=== PATIENT | male | born 1945 | race Caucasian/White ===

== ENCOUNTER 2020-11-20 10:54 | Emergency (ER) | payer MEDICARE ==
[~2020-11-20] VITALS: Ht 180.3 cm; Wt 147.4 kg
[~2020-11-20 10:54] MED LIST: ALBIPROI INH; ASPI81EC; CEPH500; CYCL10 PO; HYDACE5 PO; HYDCHL25; META800; NAPR500; RXCYCL10 PO; RXNEOPOLHC AU; VALS80; [UNRECOGNIZED DRUG - REMARK]
[2020-11-20 11:36] LABS: BASOPHILS ABSOLUTE AUTO 0.04 K/mm3 (0.00-0.23); BASOPHILS PERCENT AUTO 0 % (0-2); EOSINOPHILS ABSOLUTE AUTO 0.23 K/mm3 (0.00-0.68); EOSINOPHILS PERCENT AUTO 2 % (0-6); Hematocrit 36.7 % (37.0-53.0); Hemoglobin 11.8 g/dL (13.5-17.5); IMMATURE GRAN ABSOLUTE AUTO 0.03 K/mm3 (0.00-0.10); IMMATURE GRAN PERCENT AUTO 0 % (0-1); LYMPHOCYTES ABSOLUTE AUTO 2.27 K/mm3 (0.84-5.20); LYMPHOCYTES PERCENT AUTO 22 % (21-46); MONOCYTES ABSOLUTE AUTO 1.02 K/mm3 (0.16-1.47); MONOCYTES PERCENT AUTO 10 % (4-13); Mean Corpuscular HGB 28.9 pg (26.0-34.0); Mean Corpuscular HGB Conc 32.2 g/dL (31.5-36.5); Mean Corpuscular Volume 90 fL (80-100); Mean Platelet Volume 10.3 fL (9.1-12.4); NEUTROPHILS ABSOLUTE AUTO 6.79 K/mm3 (1.96-9.15); NEUTROPHILS PERCENT AUTO 65 % (41-73); Platelet Count 217 K/mm3 (150-400); RDW Coefficient Variation 13.1 % (11.7-14.2); RDW Standard Deviation 43.2 fL (35.1-46.3); Red Blood Cell Count 4.09 M/mm3 (4.30-5.90); White Blood Cell Count 10.38 K/mm3 (4.00-11.30)
[2020-11-20] MEDS ORDERED: GABA100 PO (11:39)
[2020-11-20] MEDS ORDERED: TAMS.4ER PO (11:39)
[2020-11-20] MEDS ORDERED: PRAV20 PO (11:40)
[2020-11-20] MEDS ORDERED: FURO20 PO (11:40)
[2020-11-20] MEDS ORDERED: POTA10T PO (11:40)
[2020-11-20] MEDS ORDERED: Amlodipine-Ben1 EACH PO (11:41)
[2020-11-20] MEDS ORDERED: FINA5 PO (11:42)
[2020-11-20] MEDS ORDERED: PIOG15 PO (11:42)
[2020-11-20] MEDS ORDERED: MSM500 MG PO (11:42)
[2020-11-20 11:59] LABS: Alanine Aminotransfer (ALT/SGP 43 U/L (12-78); Albumin, Blood 2.8 g/dL (3.4-5.0); Albumin/Globulin Ratio 0.6 (0.8-1.8); Alk Phos 78 U/L (50-136); Anion Gap 7 mmol/L (6-16); Aspartate Aminotrans (AST/SGOT 63 U/L (12-37); Bilirubin, Total 0.6 mg/dL (0.1-1.0); Blood Urea Nitrogen 21 mg/dL (8-24); Bun/Creatinine Ratio 13.4 (12.0-20.0); CO2, Blood 25 mmol/L (21-32); Calcium, Blood 8.7 mg/dL (8.5-10.1); Chloride, Blood 103 mmol/L (98-108); Creatinine, Blood 1.57 mg/dL (0.60-1.20); Globulin, Blood 4.8 g/dL (2.2-4.0); Glomerular Filtration Rate 43 (60-); Glucose, Blood 131 mg/dL (70-99); Potassium, Blood 4.1 mmol/L (3.5-5.5); Sodium, Blood 135 mmol/L (136-145); Total Protein, Blood 7.6 g/dL (6.4-8.2); Troponin I <0.015 ng/mL (0.000-0.040)
[2020-11-20] MEDS ORDERED: Norco 5-325 Ta1 EACH PO (13:22)
[2020-11-20] MEDS ORDERED: IBUP800 PO (13:22)
== END 2020-11-20 13:15 | disposition home or self-care (01) ==
LOC: ER 10:54
PROVIDERS: Physician Assistant
DX: S16.1XXA Strain of muscle, fascia and tendon at neck level, initial encounter (principal); S39.012A Strain of muscle, fascia and tendon of lower back, initial encounter; S09.90XA Unspecified injury of head, initial encounter; S40.021A Contusion of right upper arm, initial encounter; S70.01XA Contusion of right hip, initial encounter; Z79.82 Long term (current) use of aspirin; Z79.899 Other long term (current) drug therapy; W18.30XA Fall on same level, unspecified, initial encounter; Y92.002 Bathroom of unspecified non-institutional (private) residence as the place of occurrence of the external cause
CPT/HCPCS: 36415; 70450; 72070; 72100; 72125; 80053; 83690; 84484; 85025; 93005; 93010; 99284-25

== ENCOUNTER 2022-10-02 14:58 | Inpatient (IN) | payer MEDICARE ==
[~2022-10-02] VITALS: Ht 188 cm; Wt 159.3 kg
[~2022-10-02 14:58] MED LIST changes: +Amlodipine-Ben1 EACH PO; +FINA5 PO; +FURO20 PO; +GABA100 PO; +IBUP800 PO; +MSM500 MG PO; +Norco 5-325 Ta1 EACH PO; +PIOG15 PO; +POTA10T PO; +PRAV20 PO; +TAMS.4ER PO
[2022-10-02 15:32] LABS: BASOPHILS ABSOLUTE AUTO 0.03 K/mm3 (0.00-0.23); BASOPHILS PERCENT AUTO 0 % (0-2); EOSINOPHILS ABSOLUTE AUTO 0.12 K/mm3 (0.00-0.68); EOSINOPHILS PERCENT AUTO 1 % (0-6); Hematocrit 32.2 % (37.0-53.0); Hemoglobin 10.2 g/dL (13.5-17.5); IMMATURE GRAN ABSOLUTE AUTO 0.05 K/mm3 (0.00-0.10); IMMATURE GRAN PERCENT AUTO 0 % (0-1); LYMPHOCYTES ABSOLUTE AUTO 2.93 K/mm3 (0.84-5.20); LYMPHOCYTES PERCENT AUTO 20 % (21-46); MONOCYTES ABSOLUTE AUTO 1.14 K/mm3 (0.16-1.47); MONOCYTES PERCENT AUTO 8 % (4-13); Mean Corpuscular HGB Conc 31.7 g/dL (31.5-36.5); Mean Corpuscular Volume 95 fL (80-100); Mean Platelet Volume 10.2 fL (9.1-12.4); NEUTROPHILS ABSOLUTE AUTO 10.17 K/mm3 (1.96-9.15); NEUTROPHILS PERCENT AUTO 71 % (41-73); Platelet Count 166 K/mm3 (150-400); RDW Coefficient Variation 14.5 % (11.7-14.2); RDW Standard Deviation 50.5 fL (35.1-46.3); White Blood Cell Count 14.44 K/mm3 (4.00-11.30)
[2022-10-02] MEDS ORDERED: PRAV20 PO (15:38)
[2022-10-02] MEDS ORDERED: TAMSULOSIN HCL0.4 M1 PO (15:38)
[2022-10-02] MEDS ORDERED: FURO80 PO (15:38)
[2022-10-02] MEDS ORDERED: NEURONTIN300 MG PO (15:38)
[2022-10-02] MEDS ORDERED: AMLODIPINE-BEN1 EAC2 PO (15:38)
[2022-10-02] MEDS ORDERED: Potassium Chlo20 ME1 PO (15:38)
[2022-10-02] MEDS ORDERED: DEXA2 PO (15:39)
[2022-10-02] MEDS ORDERED: PIOGLITAZONE HC15 MG PO (15:40)
[2022-10-02 15:49] LABS: Magnesium, Blood 2.3 mg/dL (1.6-2.4)
[2022-10-02 15:50] LABS: Albumin/Globulin Ratio 0.8 (0.8-1.8); Bilirubin, Total 0.5 mg/dL (0.1-1.0); Bun/Creatinine Ratio 16.2 (12.0-20.0); Calcium, Blood 9.4 mg/dL (8.5-10.1); Creatinine, Blood 1.36 mg/dL (0.60-1.20); Globulin, Blood 3.9 g/dL (2.2-4.0); Potassium, Blood 4.4 mmol/L (3.5-5.5); Total Protein, Blood 6.9 g/dL (6.4-8.2)
[2022-10-02 16:12] LABS: International Normalized Ratio 1.02; Prothrombin Time Results 10.7 Sec (9.7-11.5)
[2022-10-02 16:52] LABS: Source, Urine Clean Catch
[2022-10-02 17:04] LABS: Appearance, Urine Hazy (Clear); Bilirubin, Urine Neg (Neg); Blood, Urine 2+ (Neg); Color, Urine Yellow (P-Yellow); Glucose Qualitative, Urine Neg (Neg); Ketones, Urine Neg (Neg); Leukocyte Esterase, Urine 3+ (Neg); Nitrite, Urine Pos (Neg); Protein, Urine 2+ (Neg); Urobilinogen, Urine NORM (Normal)
[2022-10-02 17:29] LABS: Bacteria Many /hpf; Squamous Epithelial Cells Rare /hpf (Few); White Blood Cells, Urine 50-100 /hpf (0-5)
[2022-10-02 19:32] VITALS: BP 152/108
[2022-10-02 20:32] LABS: Influenza A, PCR NEGATIVE (NEGATIVE); Influenza B, PCR NEGATIVE (NEGATIVE); Resp Syncytial Virus, PCR NEGATIVE (NEGATIVE); SARS-Cov-2 (COVID-19) PCR, MMC NEGATIVE (NEGATIVE)
[2022-10-02 23:25] VITALS: BP 157/67
--- NOTE | 2022-10-03 02:00 | NUR ---
UPDATE AFTER CONDOM CATH PLACED AND FAILED FOR FREQUENCY, BLADDER SCAN PERFORMED. 841 MLs IN BLADDER. STRAIGHT CATH PERFORMED WITH COUDE PER PROTOCOL DUE TO HISTORY OF PROSTATE CANCER, BPH AND PATIENT'S ANATOMY, INSERTION TRAUMATIC TO PATIENT. PATIENT BEING HEAVILY DIURESED AND HAS ALMOST FALLEN MULTIPLE TIMES DUE TO NEEDING TO GET UP TO VOID. CALL PLACED TO HOSPITALIST, ORDER FOR MENDEZ INSERTION RECEIVED. UA SENT TO LAB.
[2022-10-03 03:09] LABS: Source, Urine Foley catheter
[2022-10-03 03:12] LABS: Bilirubin, Urine Neg (Neg); Blood, Urine 5+ (Neg); Glucose Qualitative, Urine Neg (Neg); Ketones, Urine Neg (Neg); Leukocyte Esterase, Urine 2+ (Neg); Nitrite, Urine Neg (Neg); Protein, Urine 2+ (Neg); Urobilinogen, Urine NORM (Normal); pH, Urine 6.5 (5.0-8.0)
[2022-10-03 03:15] LABS: Appearance, Urine Hazy (Clear); Color, Urine Yellow (P-Yellow)
[2022-10-03 03:20] LABS: Bacteria Few /hpf; Mucus Light (0-Heavy); Red Blood Cells, Urine 25-50 /hpf (0-2); Squamous Epithelial Cells Not Seen /hpf (Few); White Blood Cells, Urine TNTC /hpf (0-5)
[2022-10-03 03:48] VITALS: BP 118/64
[2022-10-03 03:56] LABS: BASOPHILS ABSOLUTE AUTO 0.03 K/mm3 (0.00-0.23); BASOPHILS PERCENT AUTO 0 % (0-2); EOSINOPHILS ABSOLUTE AUTO 0.06 K/mm3 (0.00-0.68); EOSINOPHILS PERCENT AUTO 1 % (0-6); Hematocrit 29.7 % (37.0-53.0); Hemoglobin 9.6 g/dL (13.5-17.5); IMMATURE GRAN ABSOLUTE AUTO 0.03 K/mm3 (0.00-0.10); IMMATURE GRAN PERCENT AUTO 0 % (0-1); LYMPHOCYTES ABSOLUTE AUTO 1.78 K/mm3 (0.84-5.20); LYMPHOCYTES PERCENT AUTO 16 % (21-46); MONOCYTES ABSOLUTE AUTO 0.98 K/mm3 (0.16-1.47); MONOCYTES PERCENT AUTO 9 % (4-13); Mean Corpuscular HGB Conc 32.3 g/dL (31.5-36.5); Mean Corpuscular Volume 93 fL (80-100); Mean Platelet Volume 10.1 fL (9.1-12.4); NEUTROPHILS ABSOLUTE AUTO 7.97 K/mm3 (1.96-9.15); NEUTROPHILS PERCENT AUTO 73 % (41-73); Platelet Count 147 K/mm3 (150-400); RDW Coefficient Variation 14.3 % (11.7-14.2); RDW Standard Deviation 48.5 fL (35.1-46.3); White Blood Cell Count 10.85 K/mm3 (4.00-11.30)
[2022-10-03 04:25] LABS: Magnesium, Blood 1.8 mg/dL (1.6-2.4)
[2022-10-03 04:26] LABS: Albumin, Blood 2.7 g/dL (3.4-5.0); Albumin/Globulin Ratio 0.7 (0.8-1.8); Bilirubin, Total 0.5 mg/dL (0.1-1.0); Bun/Creatinine Ratio 14.2 (12.0-20.0); Calcium, Blood 8.9 mg/dL (8.5-10.1); Creatinine, Blood 1.34 mg/dL (0.60-1.20); Globulin, Blood 3.7 g/dL (2.2-4.0); Potassium, Blood 3.7 mmol/L (3.5-5.5); Total Protein, Blood 6.4 g/dL (6.4-8.2)
--- NOTE | 2022-10-03 06:19 | NUR ---
SHIFT SUMMARY PATIENT ALERT, ORIENTED x3-4. BP STABLE, TELE READING SINUS TACH 100-110s, PATIENT ON RA WITH O2 SAT >90%. PATIENT UNCOMFORTABLE IN HOSPITAL BED DURING THE NIGHT, PATIENT PROVIDED WITH RECLINER AND PATIENT WAS ABLE TO REST EASIER. MENDEZ IN PLACE DRAINING CLEAR/YELLOW URINE TO GRAVITY, SEE PREVIOUS NOTE. STANDBY ASSIST TO BATHROOM FOR BOWEL MOVEMENTS. NO OTHER SIGNIFICANT CHANGES DURING THE NIGHT, WILL REPORT TO DAY SHIFT RN. PATIENT AND FAMILY EDUCATED ON IGNITION RISK IF OXYGEN IS IN USE. PATIENT AND FAMILY VERBALIZED UNDERSTANDING AND PATIENT'S STATED THAT THE PATIENT QUIT SMOKING "YEARS AGO". WILL CONTINUE TO MONITOR IGNITION RISK.
[2022-10-03 07:31] VITALS: BP 121/72
[2022-10-03 15:11] VITALS: BP 141/71
--- NOTE | 2022-10-03 16:24 | NUR ---
TRANSFER: PT TRANSFERRED TO ROOM 302 VIA BED. REPORT GIVEN TO ELICIA ADAM. ALL BELONGINGS WITH PATIENT.
--- NOTE | 2022-10-03 16:29 | NUR ---
TRANSFER TO MEDICAL UNIT MR GOLDSTEIN ARRIVAL ON THE MEDICAL UNIT AT [id number]. PRESENT ON TRANSFER. CLINT WAS GIVEN WRITTEN AND VERBAL EDUCATION ON IGNITION SOURSES WHEN OXYGEN IN USE AND PT VISITOR SAFETY, ALSO REQUESTED THAT ALL VISITORS LEAVE IGNITION SOURCES IN THEIR VEHICLE. TRANSFERED ON HIS BED. PT AWAKE, CAN TALL ME HIS NAME, THAT HE IS IN HOSPITAL IN [place] FOR PNEUMONIA. HE DENIES ANY PAIN AND SAID HE HAS NO BREATHING DIFFICULTIES. MOIST NON PRODUCTIVE COUGH NOTED. CONTAINER AT BEDSIDE FOR SPUTUM CULTURE. BED LOW, CALL LIGHT IN REACH, BED ALARM ON.
[2022-10-03 19:49] VITALS: BP 134/60
[2022-10-04 04:18] LABS: Bun/Creatinine Ratio 13.7 (12.0-20.0); Calcium, Blood 9.3 mg/dL (8.5-10.1); Creatinine, Blood 1.53 mg/dL (0.60-1.20); Potassium, Blood 3.7 mmol/L (3.5-5.5)
[2022-10-04 05:18] VITALS: BP 120/58
--- NOTE | 2022-10-04 05:42 | NUR ---
AMBULATIN UP WITH MINIMAL ASSIST THIS MORNING USED WALKER TO WALK IN THE [place]. STEADY ON FEET HAD NO TROUBLE AND NO SOB. PT PUT VIA MENDEZ WAS 2400 THIS EVENING.
[2022-10-04 07:28] VITALS: BP 131/75
--- NOTE | 2022-10-04 10:45 | NUR ---
RN NOTE PT WAS EDUCATED ON IGNITION SOURCES AND RISK OF INJURY WHILE OXYGEN IN USE. HE SAID HE DOES NOT SMOKE AND THAT HE UNDERSTANDS THE EDUCATION. HOURLY ROUNDS INCLUDE OBSERVING FOR CHANGES IN RISK FOR IGNITION. MR GOLDSTEIN HAS WALKED IN HIS ROOM, STEADY GAIT. REMINDED NOT TO GET UP WITHOUT CALLING FOR ASSISTANCE. CHAIR ALARM USED HE HAS FORGOTTEN TO CALL FOR ASSISTANCE. CALL LIGHT IN REACH.
--- NOTE | 2022-10-04 12:00 | NUR ---
RN NOTE CALLED DR RESENDIZ TO DISCUSS NEED FOR CONTINUED MENDEZ CATHETER PLACEMENT AFTER REPORT OF DIFFICULT INSERTION. DR RESENDIZ DOES NOT WANT THE MENDEZ CATHETER REMOVED TODAY FLOMAX WAS STARTED THIS MORNING. REEVALUATE TOMORROW MORNING.
[2022-10-04 16:09] VITALS: BP 135/50
--- NOTE | 2022-10-04 18:33 | NUR ---
SHIFT SUMMARY MR GOLDSTEIN HAS NOT HAD ANY C/O PAIN TODAY. INDWELLING MENDEZ STILL IN PLACE (SEE PRIOR NOTE). PT INTERACTING WITH AND VISITORS THIS AFTERNOON, TIRED AFTER THEIR VISIT. OCCASIONAL NON PRODUCTIVE COUGH. DENIES SOB. BLOOD SUGARS PRE MEALS ALL STABLE. BED LOW, CALL LIGHT IN REACH, BED AND CHAIR ALARMS USED.
[2022-10-04 19:50] VITALS: BP 112/72
--- NOTE | 2022-10-05 04:43 | NUR ---
SHIFT ASSESSMENT PT MUCH BETTER UP AT SIDE OF BED HAS BEEN CALLING APPROPRIATLY NO C/O PAIN NO DISTRESS STATES HE FEELS GOOD ENOUGH TO GO HOME. EVENING HAS BEEN UNEVENTFUL, CONT TO MONITOR AND ASSIST WERE NEEDED
[2022-10-05 05:22] LABS: Bun/Creatinine Ratio 19.4 (12.0-20.0); Calcium, Blood 9.4 mg/dL (8.5-10.1); Creatinine, Blood 1.29 mg/dL (0.60-1.20); Potassium, Blood 3.7 mmol/L (3.5-5.5)
[2022-10-05 07:14] VITALS: BP 128/59
--- NOTE | 2022-10-05 08:00 | NUR ---
PT DENIES SMOKING. EDUCATED ON FIRE SAFETY. STATES HAS NO INFLAMABLE ITEMS.
[2022-10-05] MEDS ORDERED: JARDIANCE25 MG PO (13:18)
[2022-10-05] MEDS ORDERED: FURO40 PO (13:18)
[2022-10-05] MEDS ORDERED: DOXY100 PO (13:18)
[2022-10-05] MEDS ORDERED: LISI5 PO (13:18)
[2022-10-05] MEDS ORDERED: POTA10T PO (13:18)
[2022-10-05] MEDS ORDERED: VISBIOME 112.51 EACH PO (13:18)
--- NOTE | 2022-10-05 14:31 | NUR ---
IV PULLED BY AIDE. NO TELE. REVIEWED DISCHARGE WITH PT AND SPOUSE. THEY VERBALIZED UNDERSTANDING MEDS AND INST. PT WHEELED TO DOOR AT 1430
== END 2022-10-05 14:55 | disposition home or self-care (01) | DRG 871 ==
LOC: ER 14:58 → PCU 18:31 → MEDS 18:31 → PCU 18:35 → MEDS 10-03 16:14
PROVIDERS: Internal Medicine; Student in an Organized Health Care Education/Training Program; ADMIT Student in an Organized Health Care Education/Training Program
PROC: 3E03329 Introduction of Other Anti-infective into Peripheral Vein, Percutaneous Approach (ICD-10-PCS; principal; 2022-10-02)
PROC: 0T9B70Z Drainage of Bladder with Drainage Device, Via Natural or Artificial Opening (ICD-10-PCS; 2022-10-02)
DX: A41.9 Sepsis, unspecified organism (principal); G93.41 Metabolic encephalopathy; I50.33 Acute on chronic diastolic (congestive) heart failure; J18.9 Pneumonia, unspecified organism; Z68.42 Body mass index [BMI] 45.0-49.9, adult; N39.0 Urinary tract infection, site not specified; R65.20 Severe sepsis without septic shock; Z20.822 Contact with and (suspected) exposure to COVID-19; I95.9 Hypotension, unspecified; I11.0 Hypertensive heart disease with heart failure; I35.0 Nonrheumatic aortic (valve) stenosis; R79.0 Abnormal level of blood mineral; B96.20 Unspecified Escherichia coli [E. coli] as the cause of diseases classified elsewhere; R33.9 Retention of urine, unspecified; Z87.891 Personal history of nicotine dependence; Z79.891 Long term (current) use of opiate analgesic; Z79.1 Long term (current) use of non-steroidal anti-inflammatories (NSAID); Z85.51 Personal history of malignant neoplasm of bladder; Z79.82 Long term (current) use of aspirin; Z79.899 Other long term (current) drug therapy
CPT/HCPCS: 0241U; 36415; 51703; 71045; 80048; 80053; 81001; 82947; 83605; 83735; 83880; 84145; 85025; 85610; 87040; 87070; 87077; 87086; 87186; 87205; 87449; 92526; 92610; 93005; 93010; 94760; 96365; 97110; 97162; 97530; 99285-25; A9270; J0456; J0696; J1650; J1940; J7030; J7050

== ENCOUNTER 2023-04-20 08:50 | Emergency (ER) | payer OTHER ==
[~2023-04-20] VITALS: Ht 180.3 cm; Wt 158.8 kg
[~2023-04-20 08:50] MED LIST changes: +AMLODIPINE-BEN1 EAC2 PO; +DEXA2 PO; +DOXY100 PO; +FURO40 PO; +FURO80 PO; +JARDIANCE25 MG PO; +LISI5 PO; +NEURONTIN300 MG PO; +PIOGLITAZONE HC15 MG PO; +Potassium Chlo20 ME1 PO; +TAMSULOSIN HCL0.4 M1 PO; +VISBIOME 112.51 EACH PO
[2023-04-20 09:23] LABS: Source, Urine Clean Catch
[2023-04-20 09:28] LABS: Appearance, Urine Clear (Clear); Bilirubin, Urine Neg (Neg); Blood, Urine 3+ (Neg); Color, Urine Yellow (P-Yellow); Glucose Qualitative, Urine 4+ (Neg); Ketones, Urine 1+ (Neg); Leukocyte Esterase, Urine Neg (Neg); Nitrite, Urine Neg (Neg); Protein, Urine 2+ (Neg); Specific Gravity, Urine 1.015 (1.003-1.022); Urobilinogen, Urine NORM (Normal); pH, Urine 6.5 (5.0-8.0)
[2023-04-20] MEDS ORDERED: FARXIGA10 MG PO (09:34)
[2023-04-20] MEDS ORDERED: ACET250 PO (09:35)
[2023-04-20] MEDS ORDERED: PRED5 PO (09:36)
[2023-04-20] MEDS ORDERED: ABIRATERONE AC250 MG PO (09:40)
[2023-04-20] MEDS ORDERED: ASPI81CH PO (09:41)
[2023-04-20] MEDS ORDERED: VITAMIN D350 MC3 PO (09:42)
[2023-04-20 09:54] LABS: Granular Casts 0-2 /lpf (0); Hyaline Casts 0-2 /lpf (0-2)
[2023-04-20 09:55] LABS: Amorphous Light (0-Heavy); Bacteria Few /hpf; Red Blood Cells, Urine 0-2 /hpf (0-2); Squamous Epithelial Cells Few /hpf (Few); White Blood Cells, Urine 0-2 /hpf (0-5)
[2023-04-20 09:56] LABS: Renal Epithelial Rare /hpf (0-Rare)
[2023-04-20 10:33] LABS: BASOPHILS ABSOLUTE AUTO 0.03 K/mm3 (0.00-0.23); BASOPHILS PERCENT AUTO 1 % (0-2); EOSINOPHILS ABSOLUTE AUTO 0.15 K/mm3 (0.00-0.68); EOSINOPHILS PERCENT AUTO 2 % (0-6); Hemoglobin 11.7 g/dL (13.5-17.5); IMMATURE GRAN ABSOLUTE AUTO 0.03 K/mm3 (0.00-0.10); IMMATURE GRAN PERCENT AUTO 1 % (0-1); LYMPHOCYTES ABSOLUTE AUTO 1.73 K/mm3 (0.84-5.20); LYMPHOCYTES PERCENT AUTO 27 % (21-46); MONOCYTES ABSOLUTE AUTO 0.69 K/mm3 (0.16-1.47); MONOCYTES PERCENT AUTO 11 % (4-13); Mean Corpuscular HGB 29.9 pg (26.0-34.0); Mean Corpuscular HGB Conc 30.8 g/dL (31.5-36.5); Mean Corpuscular Volume 97 fL (80-100); Mean Platelet Volume 10.6 fL (9.1-12.4); NEUTROPHILS ABSOLUTE AUTO 3.78 K/mm3 (1.96-9.15); NEUTROPHILS PERCENT AUTO 59 % (41-73); Platelet Count 169 K/mm3 (150-400); RDW Coefficient Variation 14.5 % (11.7-14.2); RDW Standard Deviation 51.9 fL (35.1-46.3); Red Blood Cell Count 3.91 M/mm3 (4.30-5.90); White Blood Cell Count 6.41 K/mm3 (4.00-11.30)
[2023-04-20 10:50] LABS: Influenza A, PCR NEGATIVE (NEGATIVE); Influenza B, PCR NEGATIVE (NEGATIVE); Resp Syncytial Virus, PCR NEGATIVE (NEGATIVE)
[2023-04-20 10:52] LABS: Albumin/Globulin Ratio 0.7 (0.8-1.8); Bilirubin, Total 0.4 mg/dL (0.1-1.0); Bun/Creatinine Ratio 14.5 (12.0-20.0); Calcium, Blood 9.2 mg/dL (8.5-10.1); Creatinine, Blood 1.93 mg/dL (0.60-1.20); Globulin, Blood 4.3 g/dL (2.2-4.0); Potassium, Blood 4.1 mmol/L (3.5-5.5); Total Protein, Blood 7.3 g/dL (6.4-8.2)
[2023-04-20 10:52] LABS: SARS-Cov-2 (COVID-19) PCR, MMC POSITIVE (NEGATIVE)
[2023-04-20 11:58] VITALS: BP 117/99
== END 2023-04-20 13:48 | disposition home or self-care (01) ==
LOC: ER 08:50
PROVIDERS: Emergency Medicine
DX: U07.1 COVID-19 (principal); R29.6 Repeated falls; R35.0 Frequency of micturition; Z88.5 Allergy status to narcotic agent; Z79.899 Other long term (current) drug therapy; Z79.84 Long term (current) use of oral hypoglycemic drugs; Z79.52 Long term (current) use of systemic steroids; Z79.82 Long term (current) use of aspirin; Z87.891 Personal history of nicotine dependence
CPT/HCPCS: 0241U; 71046; 80053; 81001; 83880; 85025; 93005; 93010; 99285-25

== ENCOUNTER → 2023-05-12 | Outpatient (CLI) | payer OTHER ==
[~2023-05-12] MED LIST changes: +ABIRATERONE AC250 MG PO; +ACET250 PO; +ASPI81CH PO; +FARXIGA10 MG PO; +PRED5 PO; +VITAMIN D350 MC3 PO
[2023-05-12 10:56] LABS: Source, Urine Clean Catch
[2023-05-12 13:38] LABS: Appearance, Urine Clear (Clear); Bilirubin, Urine Neg (Neg); Blood, Urine Neg (Neg); Color, Urine Yellow (P-Yellow); Glucose Qualitative, Urine 4+ (Neg); Ketones, Urine Neg (Neg); Leukocyte Esterase, Urine Neg (Neg); Nitrite, Urine Neg (Neg); Protein, Urine 2+ (Neg); Specific Gravity, Urine 1.015 (1.003-1.022); Urobilinogen, Urine NORM (Normal)
[2023-05-12 14:10] LABS: Creatinine, Urine Random 93.4 mg/dL (27.00-270.00); Protein, Urine Random 45.3 mg/dL (0.0-11.9); Protein/Creat Ratio, Ur Random 0.5
[2023-05-12 15:07] LABS: Red Blood Cells, Urine 0-2 /hpf (0-2); White Blood Cells, Urine 0-2 /hpf (0-5)
[2023-05-12 15:08] LABS: Bacteria Mod /hpf; Squamous Epithelial Cells Rare /hpf (Few)
== END | disposition home or self-care (01) ==
LOC: LAB 08:00 → LAB SHORT 08:00
PROVIDERS: Hospitalist
DX: N18.32 Chronic kidney disease, stage 3b (principal)
CPT/HCPCS: 81001; 82570; 84156; 87086

== ENCOUNTER 2023-07-27 12:35 | Emergency (ER) | payer OTHER ==
[~2023-07-27] VITALS: Ht 180.3 cm; Wt 148.8 kg
[2023-07-27] MEDS ORDERED: NS 1,000 ML IV SCH (12:45)
[2023-07-27 13:02] LABS: BASOPHILS ABSOLUTE AUTO 0.04 K/mm3 (0.00-0.23); BASOPHILS PERCENT AUTO 0 % (0-2); EOSINOPHILS ABSOLUTE AUTO 0.42 K/mm3 (0.00-0.68); EOSINOPHILS PERCENT AUTO 4 % (0-6); Hematocrit 36.3 % (37.0-53.0); Hemoglobin 11.5 g/dL (13.5-17.5); IMMATURE GRAN ABSOLUTE AUTO 0.03 K/mm3 (0.00-0.10); IMMATURE GRAN PERCENT AUTO 0 % (0-1); LYMPHOCYTES ABSOLUTE AUTO 4.27 K/mm3 (0.84-5.20); LYMPHOCYTES PERCENT AUTO 36 % (21-46); MONOCYTES ABSOLUTE AUTO 0.67 K/mm3 (0.16-1.47); MONOCYTES PERCENT AUTO 6 % (4-13); Mean Corpuscular HGB 30.6 pg (26.0-34.0); Mean Corpuscular HGB Conc 31.7 g/dL (31.5-36.5); Mean Corpuscular Volume 97 fL (80-100); NEUTROPHILS PERCENT AUTO 55 % (41-73); Platelet Count 217 K/mm3 (150-400); RDW Coefficient Variation 13.9 % (11.7-14.2); RDW Standard Deviation 49.2 fL (35.1-46.3); Red Blood Cell Count 3.76 M/mm3 (4.30-5.90); White Blood Cell Count 11.93 K/mm3 (4.00-11.30)
[2023-07-27 13:25] LABS: Albumin, Blood 2.9 g/dL (3.4-5.0); Albumin/Globulin Ratio 0.8 (0.8-1.8); Bilirubin, Total 0.4 mg/dL (0.1-1.0); Bun/Creatinine Ratio 15.9 (12.0-20.0); Calcium, Blood 9.9 mg/dL (8.5-10.1); Creatinine, Blood 2.71 mg/dL (0.60-1.20); Globulin, Blood 3.8 g/dL (2.2-4.0); Potassium, Blood 5.9 mmol/L (3.5-5.5); Total Protein, Blood 6.7 g/dL (6.4-8.2)
--- NOTE | 2023-07-27 16:23 | NUR ---
The patient, and 2 granddaughters are present for palliative conversation. They report the pt's health has been declining over the past few months, with it worsening daily over the past week. According to family, the patient is no longer able to perform ADL's. He is sleeping up to 20 hours a day, and no longer participating in any activities. He has a history of prostate cancer, and has been involved in treatment until approximately a month ago, according to family. He also has a history of kidney disease, and is currently not receiving treatment for this. Referral sent to [facility] for evaluate and treat if indicated.
[2023-07-27 18:30] VITALS: BP 109/70
== END 2023-07-27 18:30 | disposition home or self-care (01) ==
LOC: ER 12:35
PROVIDERS: Emergency Medicine
DX: R53.1 Weakness (principal); J96.10 Chronic respiratory failure, unspecified whether with hypoxia or hypercapnia; E66.2 Morbid (severe) obesity with alveolar hypoventilation; Z68.42 Body mass index [BMI] 45.0-49.9, adult; I12.9 Hypertensive chronic kidney disease with stage 1 through stage 4 chronic kidney disease, or unspecified chronic kidney disease; N18.9 Chronic kidney disease, unspecified; Z88.5 Allergy status to narcotic agent; Z79.899 Other long term (current) drug therapy; Z79.52 Long term (current) use of systemic steroids; Z79.82 Long term (current) use of aspirin; Z87.891 Personal history of nicotine dependence
CPT/HCPCS: 80053; 85025; 93005; 93010; 99285-25; J7030